=== PATIENT | male | born 1985 | race Caucasian/White ===

== ENCOUNTER 2019-09-19 09:42 | Emergency (ER) | payer SELFPAY ==
[2019-09-19] MEDS ORDERED: Ibuprofen 800 MG TAB ONE (10:20)
[2019-09-19] MEDS ORDERED: Clindamycin 150 MG CAP ONE (10:20)
== END 2019-09-19 10:40 | disposition home or self-care (01) ==
LOC: MADERS 09:42
DX: K03.81 Cracked tooth (principal); K02.9 Dental caries, unspecified; F17.210 Nicotine dependence, cigarettes, uncomplicated

== ENCOUNTER 2020-02-18 16:54 | Emergency (ER) | payer SELFPAY ==
[2020-02-18] MEDS ORDERED: Ondansetron PF 4 MG/2 ML Vial ONE (17:35)
[2020-02-18 18:01] LABS: #Basophils 0.1 thou/uL (0.0-0.2); #Eosinphils 0.1 thou/uL (0.0-0.7); #Lymphocytes 1.5 thou/uL (1.20-3.40); #Monocytes 0.4 thou/uL (0.11-0.59); #Neutrophils 6.8 thou/uL (1.40-6.50); %Basophils 0.7 % (0.0-1.0); %Eosinophils 0.9 % (0.0-10.0); %Lymphocytes 17.2 % (21.0-51.0); %Monocytes 3.9 % (0.0-10.0); %Neutrophils 77.2 % (42.0-75.0); Hemoglobin 15.2 g/dL (14.0-18.0); Mean Corpuscular HGB CONC 34.8 g/dL (32.0-36.0); Mean Corpuscular Hemoglobin 31.4 pg (27.0-31.0); Mean Corpuscular Volume 90.2 fL (78.0-98.0); Mean Platelet Volume 9.3 fL (7.4-10.4); Platelet Count 178 thou/uL (130-400); RBC Distribution Width 9.9 % (11.5-14.5); Red Blood Cell (RBC) Count 4.85 mill/uL (4.70-6.10); White Blood Cell (WBC) Count 8.8 thou/uL (4.8-10.8)
[2020-02-18 18:13] LABS: ALT (SGPT) 14 U/L (8-55); AST (SGOT) 23 U/L (5-34); Albumin 4.7 g/dL (3.5-5.0); Alkaline Phosphatase 92 U/L (40-110); Anion Gap 17 mmol/L (10-20); BUN (Urea Nitrogen) 13 mg/dL (8.9-20.6); Bilirubin, Total 2.4 mg/dL (0.2-1.2); Calc. Creatinine Clearance 0 mL/min (70-130); Calcium 9.2 mg/dL (7.8-10.44); Carbon Dioxide 25 mmol/L (22-29); Chloride 102 mmol/L (98-107); Globulin 2.8 g/dL (2.4-3.5); Glucose 91 mg/dL (70-105); Potassium 4.2 mmol/L (3.5-5.1); Protein, Total 7.5 g/dL (6.0-8.3); Sodium 140 mmol/L (136-145)
[2020-02-18] MEDS ORDERED: Metoclopramide HCl 10 MG/2 ML VIAL ONE (18:38)
== END 2020-02-18 18:35 | disposition home or self-care (01) ==
LOC: MADERS 16:54
DX: K52.9 Noninfective gastroenteritis and colitis, unspecified (principal); F17.220 Nicotine dependence, chewing tobacco, uncomplicated
CPT/HCPCS: 80053; 85025; 96361; 96374; 96375; J2405; J2765

== ENCOUNTER 2020-07-13 11:59 | Emergency (ER) | payer SELFPAY ==
[2020-07-13] MEDS ORDERED: Boostrix 0.5 ML (Tdap) VIAL ONE (12:37)
[2020-07-13] MEDS ORDERED: Clindamycin 150 MG CAP ONE (12:37)
[2020-07-13] MEDS ORDERED: Lidocaine 1% 20 ML MDV ONE (12:45)
[2020-07-13] MEDS ORDERED: Bacitracin 1 PK ONE ×2 (12:45→16:05)
[2020-07-13] MEDS ORDERED: Ibuprofen 800 MG TAB ONE (12:57)
[2020-07-13] MEDS ORDERED: HYDROcodone/Acetaminophen 5/325 mg Tablet ONE (12:57)
== END 2020-07-13 13:00 | disposition home or self-care (01) ==
LOC: MADERS 11:59
DX: S61.412A Laceration without foreign body of left hand, initial encounter (principal); Z23 Encounter for immunization; F17.220 Nicotine dependence, chewing tobacco, uncomplicated; W45.8XXA Other foreign body or object entering through skin, initial encounter
CPT/HCPCS: 12001; 90471; 90715

== ENCOUNTER 2020-10-01 09:07 | Emergency (ER) | payer SELFPAY | END 2020-10-01 10:04 | disposition home or self-care (01) | LOC: MADERS 09:07 | DX: K04.7 Periapical abscess without sinus (principal); I88.9 Nonspecific lymphadenitis, unspecified; K02.9 Dental caries, unspecified; K03.81 Cracked tooth; F17.220 Nicotine dependence, chewing tobacco, uncomplicated | CPT/HCPCS: 99283 ==

== ENCOUNTER 2021-02-20 12:45 | Emergency (ER) | payer SELFPAY | END 2021-02-20 13:31 | disposition home or self-care (01) | LOC: MADERS 12:45 | DX: F10.129 Alcohol abuse with intoxication, unspecified (principal) | CPT/HCPCS: 99284 ==